=== PATIENT | male | born 1925 | race Caucasian/White ===

== ENCOUNTER → 2016-07-02 | Outpatient (CLI) | payer MEDICARE, OTHER ==
[~2016-07-02] VITALS: Ht 177.8 cm; Wt 59.0 kg
[~2016-07-02] MED LIST: ASPI-556 PO; BRINOS OP; BRINOS OU; CALC-1015 PO; CALC-51 PO; CHOL10002 PO; COMB5OS OU; IBAN150T PO; LOPE2 PO; MULT-1259 PO; PREDAOS OD; TIMO.25OS OU
[2016-07-02 10:52] VITALS: BP 130/74
[2016-07-02 14:46] LABS: GLUCOSE,POINT OF CARE 98 MG/DL (70-110)
== END | disposition home or self-care (01) ==
LOC: SRCNTR 10:40
PROVIDERS: ATTEND Hospitalist
DX: E11.9 Type 2 diabetes mellitus without complications (principal); E78.5 Hyperlipidemia, unspecified; M81.0 Age-related osteoporosis without current pathological fracture; H40.9 Unspecified glaucoma; K40.90 Unilateral inguinal hernia, without obstruction or gangrene, not specified as recurrent; Z85.79 Personal history of other malignant neoplasms of lymphoid, hematopoietic and related tissues
CPT/HCPCS: 82962; G0463

== ENCOUNTER → 2016-07-30 | Outpatient (CLI) | payer MEDICARE, OTHER ==
[~2016-07-30] VITALS: Ht 177.8 cm; Wt 58.0 kg
[~2016-07-30] MED LIST changes: -CALC-1015 PO
[2016-07-30 13:56] VITALS: BP 105/66
== END | disposition home or self-care (01) ==
LOC: SRCNTR 13:29
PROVIDERS: ATTEND Podiatrist Foot & Ankle Surgery
DX: E11.9 Type 2 diabetes mellitus without complications (principal); I73.9 Peripheral vascular disease, unspecified; L57.0 Actinic keratosis; M79.675 Pain in left toe(s); M79.674 Pain in right toe(s); L29.8 Other pruritus
CPT/HCPCS: G0463

== ENCOUNTER → 2016-09-26 | Outpatient (CLI) | payer MEDICARE, OTHER ==
[~2016-09-26] MED LIST changes: -IBAN150T PO; +IBAN150T3 PO
[2016-09-26 12:08] LABS: BASOPHILS % (AUTO) 0.2 % (0.0-2.0); EOSINOPHILS % (AUTO) 1.5 % (1.0-6.0); HEMATOCRIT 40.2 % (41-53); HEMOGLOBIN 13.2 g/dL (13.5-17.5); LYMPHOCYTES # (AUTO) 0.9 K/uL (1.0-4.8); LYMPHOCYTES % (AUTO) 19.4 % (22.0-44.0); MEAN CORPUSCULAR HGB CONC 32.8 G/dL (31.0-37.0); MEAN CORPUSCULAR VOLUME 104 fL (80-100); MONOCYTES # (AUTO) 0.3 K/uL (0.1-1.0); MONOCYTES % (AUTO) 5.9 % (2.0-9.0); NEUTROPHILS # (AUTO) 3.4 K/uL (1.8-7.7); PLATELET COUNT (AUTO) 211 K/uL (150-450); RED BLOOD CELL COUNT(AUTO) 3.88 MIL/uL (4.50-5.90); RED CELL DISTRIBUTION WIDTH 14.2 % (11.5-14.5); WHITE BLOOD COUNT (AUTO) 4.7 K/uL (4.5-11.0)
[2016-09-26 12:15] LABS: RBC MORPHOLOGY COMMENT ABNORMAL RBC MORPH
[2016-09-26 12:35] LABS: ALANINE AMINOTRANSFERASE 19 U/L (12-78); ALBUMIN 3.6 g/dL (3.4-5.0); ANION GAP 8 mmol/L (8-16); ASPARTATE AMINOTRANSFERASE 21 U/L (15-37); BILIRUBIN,TOTAL 0.8 mg/dL (0.1-1.0); CALCIUM, TOTAL 8.3 mg/dL (8.8-10.5); CARBON DIOXIDE 28 mmol/L (22-29); CHLORIDE 106 mmol/L (98-107); CREATININE 0.87 mg/dL (0.60-1.30); GLOMERULAR FILTR. RATE CALC > 60 mL/min (>60); POTASSIUM 3.8 mmol/L (3.5-5.1); SODIUM SERUM 142 mmol/L (136-145); THYROID STIMULATING HORMONE 2.08 uIU/mL (0.36-3.74); TOTAL PROTEIN, SERUM 7.1 g/dL (6.4-8.2); UREA NITROGEN, BLOOD 14 mg/dL (7-18)
[2016-09-26 12:45] LABS: PROSTATE SPECIFIC ANTIGEN 0.74 ng/mL (0.00-4.00)
[2016-09-26 13:46] LABS: HEMOGLOBIN A1C 6.7 % (4.5-6.2)
== END | disposition home or self-care (01) ==
LOC: LABPV 09:54
PROVIDERS: ATTEND Hospitalist
DX: Z12.5 Encounter for screening for malignant neoplasm of prostate (principal); E11.9 Type 2 diabetes mellitus without complications
CPT/HCPCS: 83036; 84153; 84439; 84443

== ENCOUNTER → 2016-10-04 | Outpatient (CLI) | payer MEDICARE, OTHER ==
[~2016-10-04] VITALS: Ht 175.3 cm; Wt 59.7 kg
[2016-10-04 09:55] VITALS: BP 138/65
[2016-10-04 14:32] LABS: GLUCOSE COMMENT 1 Post Meal; GLUCOSE,POINT OF CARE 166 MG/DL (70-110)
== END | disposition home or self-care (01) ==
LOC: SRCNTR 09:49
PROVIDERS: ATTEND Hospitalist
DX: E11.65 Type 2 diabetes mellitus with hyperglycemia (principal); E78.5 Hyperlipidemia, unspecified; M81.0 Age-related osteoporosis without current pathological fracture; H40.9 Unspecified glaucoma; K40.90 Unilateral inguinal hernia, without obstruction or gangrene, not specified as recurrent; Z85.79 Personal history of other malignant neoplasms of lymphoid, hematopoietic and related tissues
CPT/HCPCS: 82962; G0463

== ENCOUNTER → 2016-10-29 | Outpatient (CLI) | payer MEDICARE, OTHER ==
[~2016-10-29] VITALS: Ht 177.8 cm; Wt 61.0 kg
[~2016-10-29] MED LIST changes: -BRINOS OP; -COMB5OS OU; +IBAN150T PO; -IBAN150T3 PO
[2016-10-29 14:35] VITALS: BP 141/75
== END | disposition home or self-care (01) ==
LOC: SRCNTR 13:47
PROVIDERS: ATTEND Podiatrist Foot & Ankle Surgery
DX: E11.51 Type 2 diabetes mellitus with diabetic peripheral angiopathy without gangrene (principal); L57.0 Actinic keratosis; M21.612 Bunion of left foot; M21.611 Bunion of right foot; M79.645 Pain in left finger(s); M79.644 Pain in right finger(s); L29.9 Pruritus, unspecified
CPT/HCPCS: G0463